=== PATIENT | female | born 1950 | race Caucasian/White ===

== ENCOUNTER → 2019-11-15 | Outpatient (CLI) | payer MEDICARE ==
[~2019-11-15] MED LIST: IOPAMIDOL 370 MG/ML 200 ML INFUS..BTL INJ ONE; SODIUM CHLORIDE 0.9% 50ML 50 ML ONE
[2019-11-15 08:16] LABS: BLOOD UREA NITROGEN 18 mg/dL (7-26); BUN/CREATININE RATIO 22 (6-25); CREATININE, SERUM 0.82 mg/dL (0.57-1.11); EST GLOMERULAR FILTRATION RATE > 60 ML/MIN (60-)
--- NOTE | 2019-11-15 09:09 | Diagnostic Imaging Report ---
EXAM: CT Abdomen and Pelvis WITH intravenous contrast INDICATION: Abdominal pain COMPARISON: None. TECHNIQUE: Abdomen and pelvis were scanned utilizing a multidetector helical scanner from the lung base to the pubic symphysis after administration of IV contrast. Coronal and sagittal reformations were obtained. Routine protocol was performed. Scan was performed during portal venous phase. IV CONTRAST: 100mL of Isovue 370 ORAL CONTRAST: Water RADIATION DOSE: Total DLP: 558.5 mGy*cm Dose modulation, iterative reconstruction, and/or weight based adjustment of the mA/kV was utilized to reduce the radiation dose to as low as reasonably achievable. FINDINGS: LOWER THORAX: Normal. HEPATOBILIARY: Diffuse hepatic steatosis. Mildly nodular liver surface contour compatible with cirrhosis. No focal liver lesion. No biliary ductal dilation. Unremarkable gallbladder. SPLEEN: Mild splenomegaly, measuring up to 13.1 cm. Wedge-shaped hypodensity in the body of the spleen compatible with splenic infarct. PANCREAS: No focal masses or ductal dilatation. ADRENALS: No adrenal nodules. KIDNEYS/URETERS: No renal calculi or hydronephrosis. 2.8 cm posterior left midpole simple renal cyst. PELVIC ORGANS/BLADDER: 1.1 cm mildly enhancing superior uterine body lesion, likely a fibroid. PERITONEUM / RETROPERITONEUM: No free air or fluid. LYMPH NODES: No lymphadenopathy. VESSELS: Mild scattered atherosclerotic calcifications of the nonaneurysmal abdominal aorta and major branches. GI TRACT: Mild diverticulosis. No CT evidence of diverticulitis. No abnormal bowel thickening. No bowel obstruction. Normal appendix. BONES AND SOFT TISSUES: No acute osseous injury. No suspicious lytic or blastic lesions. Mild multilevel degenerative changes of the visualized spine. IMPRESSION: Diffuse hepatic steatosis and nodular liver surface contour compatible with early cirrhosis. Mild splenomegaly. Splenic infarct. Small uterine fibroid. Signed by: Hannah Rojas MD on 11/15/2019 9:06 AM
== END ==
LOC: CT 06:55
PROVIDERS: ATTEND Internal Medicine Gastroenterology
DX: R10.84 Generalized abdominal pain (principal)
CPT/HCPCS: 36415; 74177; 82565; 84520; Q9967

== ENCOUNTER → 2019-12-12 | Outpatient (CLI) | payer MEDICARE ==
--- NOTE | 2019-12-12 10:07 | Diagnostic Imaging Report ---
EXAM: US ABDOMEN COMPLETE DATE: 12/12/2019 7:29 AM INDICATION: Hepatic steatosis COMPARISON: CT abdomen and pelvis of 11/15/2019 TECHNIQUE: Transverse and longitudinal reyes scale and color doppler sonographic images of the upper abdomen were obtained. FINDINGS: LIVER 15.2 cm in the right midclavicular line. Mildly increased echogenicity of the liver with mildly nodular surface contour, no masses. SPLEEN 11.1 cm in maximum diameter. Normal echogenicity, no masses. GALLBLADDER No gallbladder wall thickening, distension, stone, or pericholecystic fluid. Negative reported sonographic Rojo's sign. The gallbladder wall measures 3mm BILE DUCTS No intra nor extra-hepatic biliary dilation. Common bile duct measures 2mm PANCREAS: Visualized portions are normal. RIGHT KIDNEY: 11.8 cm Echogenicity: Normal Collecting System: No hydronephrosis Stones: None Cyst/Mass: None LEFT KIDNEY: 10.6 cm Echogenicity: Normal Collecting System: No hydronephrosis Stones: None Cyst/Mass: Upper pole 2.9 cm simple cyst. VESSELS: Aorta: Visualized portions are within normal size limits Inferior Vena Cava: Visualized portions are normal Main Portal Vein: 1.1 cm, normal size with hepatopetal flow. FREE FLUID: None IMPRESSION: Mild hepatic steatosis. Mildly nodular liver surface contour may represent early cirrhosis. Left upper pole simple renal cyst. Signed by: Hannah Rojas MD on 12/12/2019 10:04 AM
== END ==
LOC: US 07:13
PROVIDERS: ATTEND Internal Medicine Gastroenterology
DX: K76.0 Fatty (change of) liver, not elsewhere classified (principal); R16.1 Splenomegaly, not elsewhere classified
CPT/HCPCS: 76700

== ENCOUNTER → 2021-08-04 | Outpatient (CLI) | payer OTHER | LOC: MAMMO 10:17 | PROVIDERS: ATTEND Family Medicine | DX: Z12.31 Encounter for screening mammogram for malignant neoplasm of breast (principal) | CPT/HCPCS: 77067 ==